=== PATIENT | male | born 1995 | race Two or more races ===

== ENCOUNTER 2020-11-03 13:53 | Emergency (ER) | payer OTHER ==
[2020-11-03 13:58] VITALS: BP 138/78; PULSE 104; RESP 18; TEMP 98.8
--- NOTE | 2020-11-03 14:19 | ED ---
General Adult HPI - General Source: patient, RN notes reviewed Mode of arrival: ambulatory Limitations: no limitations <Simba Byrne - Last Filed: 11/03/20 15:01> <Yessenia Gordon - Last Filed: 11/04/20 01:33> - General Chief complaint: Recheck/Abnormal Lab/Rx Stated complaint: Covid test Time Seen by Provider: 11/03/20 13:58 - History of Present Illness Initial comments: This a 25-year-old male presents emergency Department chief complaint of needing COVID-19 testing. Patient states his testicles a few days ago. Patient is asymptomatic denies any fevers chills cough congestion sore throat nausea vomiting diarrhea constipation. Patient offers no other complaints. (Simba Byrne) - Related Data Allergies Allergy/AdvReac Type Severity Reaction Status Date / Time No Known Allergies Allergy Verified 11/03/20 13:57 Review of Systems ROS Other: All systems not noted in ROS Statement are negative. <Simba Byrne - Last Filed: 11/03/20 15:01> ROS Other: All systems not noted in ROS Statement are negative. <Yessenia Gordon - Last Filed: 11/04/20 01:33> ROS Statement: Those systems with pertinent positive or pertinent negative responses have been documented in the HPI. Past Medical History Past Medical History: No Reported History History of Any Multi-Drug Resistant Organisms: None Reported Past Surgical History: No Surgical Hx Reported Past Psychological History: No Psychological Hx Reported Smoking Status: Current every day smoker Past Alcohol Use History: Occasional Past Drug Use History: Marijuana <Simba Byrne - Last Filed: 11/03/20 15:01> General Exam Limitations: no limitations General appearance: alert, in no apparent distress Head exam: Present: atraumatic, normocephalic, normal inspection Eye exam: Present: normal appearance, PERRL, EOMI. Absent: scleral icterus, conjunctival injection, periorbital swelling ENT exam: Present: normal exam, mucous membranes moist Neck exam: Present: normal inspection, full ROM. Absent: tenderness, meningismus, lymphadenopathy Respiratory exam: Present: normal lung sounds bilaterally. Absent: respiratory distress, wheezes, rales, rhonchi, stridor Cardiovascular Exam: Present: regular rate, normal rhythm, normal heart sounds. Absent: systolic murmur, diastolic murmur, rubs, gallop, clicks GI/Abdominal exam: Present: soft, normal bowel sounds. Absent: distended, tenderness, guarding, rebound, rigid Neurological exam: Present: alert Skin exam: Present: warm, dry, intact, normal color. Absent: rash <Simba Byrne - Last Filed: 11/03/20 15:01> Course Vital Signs 11/03/20 13:55 Temperature 98.8 F Pulse Rate 104 H Respiratory 18 Rate Blood Pressure 138/78 O2 Sat by Pulse 99 Oximetry Medical Decision Making <Simba Byrne - Last Filed: 11/03/20 15:01> - Medical Decision Making 25 show present for Covid test test is negative patient we discharged hi (Simba Byrne) - Lab Data Lab Results 11/03/20 Range/Units 14:14 Coronavirus (PCR) Not Detected (Not Detectd) Disposition Is patient prescribed a controlled substance at d/c from ED?: No Time of Disposition: 15:02 <Simba Byrne - Last Filed: 11/03/20 15:01> <Yessenia Gordon - Last Filed: 11/04/20 01:33> Clinical Impression: Encounter for laboratory testing for COVID-19 virus Disposition: HOME SELF-CARE Condition: Stable Additional Instructions: Please return to the Emergency Department if symptoms worsen or any other concerns. Referrals: None,Stated [Primary Care Provider] - 1-2 days
== END 2020-11-03 15:13 | disposition home or self-care (01) ==
LOC: EC 13:53
DX: Z20.822 Contact with and (suspected) exposure to COVID-19 (principal); F17.200 Nicotine dependence, unspecified, uncomplicated
CPT/HCPCS: 87635; 99283

== ENCOUNTER 2021-01-11 23:03 | Emergency (ER) | payer OTHER ==
[2021-01-11 23:12] VITALS: BP 110/71; PULSE 85; RESP 18; TEMP 97.5
--- NOTE | 2021-01-11 23:45 | ED ---
Medical Clearance HPI - General Chief complaint: Drug Screen Stated complaint: [facility] drug screen Time Seen by Provider: 01/11/21 23:26 Source: patient Mode of arrival: ambulatory - History of Present Illness Initial comments: 45-year-old male patient presented to the emergency department sent by his employer due to "weird behavior". They are requesting drug screen and breath alcohol testing. Patient states he did have alcohol when he got out of work at 0530 this morning. States that he did not drink prior to going in tonight at 2030. States he feels well. Denies any headache, blurred vision, or weakness. Denies any recent head injury. Denies any injuries at work. Allergies/Adverse reactions: Allergies Allergy/AdvReac Type Severity Reaction Status Date / Time No Known Allergies Allergy Verified 01/11/21 23:12 Review of Systems ROS Statement: Those systems with pertinent positive or pertinent negative responses have been documented in the HPI. ROS Other: All systems not noted in ROS Statement are negative. Past Medical History Past Medical History: No Reported History History of Any Multi-Drug Resistant Organisms: None Reported Past Surgical History: No Surgical Hx Reported Past Psychological History: No Psychological Hx Reported Smoking Status: Current every day smoker Past Alcohol Use History: Occasional Past Drug Use History: Marijuana General Exam Limitations: no limitations General appearance: alert, in no apparent distress Eye exam: Present: normal appearance, PERRL, EOMI. Absent: scleral icterus, conjunctival injection, periorbital swelling ENT exam: Present: normal exam, normal oropharynx, mucous membranes moist Respiratory exam: Present: normal lung sounds bilaterally. Absent: respiratory distress, wheezes, rales, rhonchi, stridor Cardiovascular Exam: Present: regular rate, normal rhythm, normal heart sounds. Absent: systolic murmur, diastolic murmur, rubs, gallop, clicks GI/Abdominal exam: Present: soft, normal bowel sounds. Absent: distended, tenderness, guarding, rebound, rigid Neurological exam: Present: alert, oriented X3, CN II-XII intact Psychiatric exam: Present: normal affect, normal mood Skin exam: Present: warm, dry, intact, normal color. Absent: rash Course Vital Signs 01/11/21 23:10 Temperature 97.5 F L Pulse Rate 85 Respiratory 18 Rate Blood Pressure 110/71 O2 Sat by Pulse 100 Oximetry Medical Decision Making - Medical Decision Making 25 year-old male patient presents to the emergency department today for drug screen and blood alcohol test. He was sent in by his employer due to abnormal behavior. Physical examination is unremarkable. His aunt all questions appropriately. We did obtain drug screen. His initial breath alcohol was 0.20, repeat was 0.19. He is advised not to return to work tonight. He is taking a cab home. He is instructed to follow-up with employee health services as needed. Return parameters were discussed in detail. He verbalizes understanding and agrees this plan. My attending is Dr. Blackman. Disposition Clinical Impression: Encounter for drug screening, Alcohol intoxication Disposition: HOME SELF-CARE Condition: Good Instructions (If sedation given, give patient instructions): Alcohol Intoxication (ED) Additional Instructions: Follow-up with employee health services as needed. Return for any new, worsening, or concerning symptoms. Is patient prescribed a controlled substance at d/c from ED?: No Referrals: None,Stated [Primary Care Provider] - 1-2 days Time of Disposition: 23:45
== END 2021-01-11 23:54 | disposition home or self-care (01) ==
LOC: EC 23:03
DX: Z02.83 Encounter for blood-alcohol and blood-drug test (principal); F10.129 Alcohol abuse with intoxication, unspecified; F17.200 Nicotine dependence, unspecified, uncomplicated; F12.90 Cannabis use, unspecified, uncomplicated
CPT/HCPCS: 99281